=== PATIENT | male | born 1965 | race Caucasian/White ===

== ENCOUNTER 2020-04-22 07:24 | Day surgery (SDC) | payer OTHER ==
[2020-04-22] MEDS ORDERED: propofoL 200 MG/20 ML VIAL IV ONE (07:48)
[2020-04-22] MEDS ORDERED: ONDANSETRON 4 MG/2 ML VIAL ONE (07:48)
[2020-04-22] MEDS ORDERED: LIDOCAINE 2% MPF 5 ML VIAL ONE (07:48)
[2020-04-22] MEDS ORDERED: FENTANYL CITR 100 MCG/2 ML ONE (07:48)
[2020-04-22] MEDS ORDERED: KETOROLAC 30 MG/ML INJ ONE (07:48)
[2020-04-22] MEDS ORDERED: dexAMETHasone 4 MG/ML VIAL ONE (07:48)
[2020-04-22] MEDS ORDERED: MIDAZOLAM HCL 2 MG/2 ML INJ ONE (07:48)
[2020-04-22 07:59] LABS: Absolute Lymphocytes (CBC) 1.9 K/uL (0.7-4.9); Basophils % 1.4 % (0-1.3); Hematocrit 48.7 % (39.6-49.0); Lymphocytes % 31.8 % (15.3-44.8); MPV 10.2 fL (7.6-11.3)
[2020-04-22 08:16] LABS: Potassium 4.5 mmol/L (3.5-5.1)
[2020-04-22] MEDS ORDERED: Ringers Lactate 1,000 ML IV ONE (08:16)
[2020-04-22] MEDS ORDERED: CEFAZOLIN/SWI 1gm 1 GM/10 ML SYR ONE (08:17)
--- NOTE | 2020-04-22 08:55 | P.BOP ---
Preoperative diagnosis: infected post neck subQ mass with abscess Postoperative diagnosis: same Primary procedure: Excisional bx of infected post neck subQ mass with abscess drainage 3x3 cm Estimated blood loss: <10cc Specimen: mass, culture Findings: as above Anesthesia: General Complications: None Drain(s): Other Transferred to: Recovery Room Condition: Good
--- NOTE | 2020-04-22 09:01 | RAD REPORT ---
EXAM DESCRIPTION: Fred Payton (2 Views)04/22/2020 8:02 am CLINICAL HISTORY: Preop for neck mass surgery COMPARISON: None FINDINGS: The lungs appear clear of acute infiltrate. The heart is normal size IMPRESSION: No acute abnormalities displayed
--- NOTE | 2020-04-22 09:43 | OP ---
Date of Procedure: 04/22/2020 Surgeon: Yassine Lindsey MD Preoperative Diagnosis: Infected posterior neck mass with abscess. Postoperative Diagnosis: Infected posterior neck mass with abscess. Procedure Performed: Excisional biopsy of infected posterior neck mass with drainage of an abscess, 3 x 3 cm. Anesthesia: General plus local. Specimen: As a culture and mass. Estimated Blood Loss: Less than 10 mL. Indications: This patient is a 54-year-old patient comes to us with a posterior neck mass with purul ent discharge and cellulitis. Benefits, alternatives, and risks of excision and removal of abscess f ully explained which include, but not limited to infection, bleeding, damage to adjacent structures, anesthesia complication, nonhealing wound, [place], and even . He also understands this may not reli ness his symptoms. He might need more than one surgical intervention. He understand also he will be doing wet-to-dry dressing with normal saline and this was explained to him previously. He signed a c onsent. The area of concern was marked by me and the patient in the holding room. Description Of Procedure: The patient was brought to the operating room placed in supine position. Anesthesia was done without complication. The patient was placed in lateral decubitus position with proper protection. A time-out was called. Local anesthesia was applied followed by wide excision of the skin to include the mass, the ulceration of the skin and also the subcutaneous tissue that led u s into an abscess. Abscess loculations were explored, opened, irrigated. Culture was obtained. Spe zaiden was sent to the to the pathologist to rule out any malignancy also. The patient tolerated the procedure well. Hemostasis was obtained. The area was packed with dry dressing. The patient was se nt to Recovery. The patient was awake to Recovery in stable condition. Discharge Summary: Diagnosis: Posterior neck infected subcutaneous mass. Procedure: Excisional biopsy of infected posterior neck subcutaneous mass. Normal saline dressing changes daily. May take the dressings off and take a shower. For medications , the patient already have prescriptions from the office. PEGGY/CED Voice ID: [id number] Report ID: [id number]
[2020-04-22 10:02] VITALS: BP 129/80; TEMP 97; O2SAT 94
--- NOTE | 2020-04-23 07:17 | EKG ---
Test Date: 2020-04-22 Test Time: 08:24:48 Shaft Repairer: ESHA MEASUREMENT RESULTS: Intervals: Rate: 49 MN: 176 QRSD: 90 QT: 440 QTc: 397 Rawson: P: 65 MN: 176 QRS: 70 T: 58 INTERPRETIVE STATEMENTS: Marked sinus bradycardia Abnormal ECG No previous ECG available for comparison Electronically Signed On 04-23-20 07:16:14 PROFESSOR OF HISTORICAL THEOLOGY by Jc Mcclellan
== END 2020-04-22 10:30 | disposition home or self-care (01) ==
LOC: OR 07:24
PROVIDERS: ATTEND Surgery
PROC: 0HB4XZZ Excision of Neck Skin, External Approach (ICD-10-PCS; principal; 2020-04-22 08:30)
DX: L72.0 Epidermal cyst (principal); L02.11 Cutaneous abscess of neck; Z20.828 Contact with and (suspected) exposure to other viral communicable diseases
CPT/HCPCS: 93005; 87070; 85025; 80048; 36415; 87205; 88304; 87075; 71046; 11423; U0002; J2704; J1100; J2250; J3010; J0690; J7120; J2405; 88305